=== PATIENT | female | born 1955 | race Caucasian/White ===

== ENCOUNTER 2016-10-20 10:00 | Day surgery (SDC) | payer BC ==
[2016-10-20 10:55] LABS: INR 0.96; PROTHROMBIN TIME (PATIENT) 10.9 SECONDS (9.5-12.1)
[2016-10-20] MEDS ORDERED: LIDOCAINE 2% MDV (20MG/ML) 20ML VIAL IV ONE (14:00)
[2016-10-20] MEDS ORDERED: PROPOFOL 10 MG/ML VIAL IV ONE (14:00)
[2016-10-20] MEDS ORDERED: MIDAZOLAM HCL 2MG/2ML VIAL IV ONE (14:00)
[2016-10-20] MEDS ORDERED: FENTANYL PF 100MCG/2ML VIAL IV ONE (14:00)
--- NOTE | 2016-10-21 12:30 | Operative Note ---
DATE OF SURGERY: 10/20/2016 ORDERING PHYSICIAN: Montserrat Harris D.O. PROCEDURE: ESOPHAGOGASTRODUODENOSCOPY with Savary guidewire dilatation. Surgeon: Fede Flor D.O. Indication: Recurring dysphagia. HISTORY: The patient is a very pleasant 61-year-old female who suffers with dysphagia. She has problems with both initiating the swallow mechanism and has had an abnormal video swallow study. She is now seeing a speech pathologist for strengthening exercises for swallowing musculature. She also had a tubular esophagus with narrowing in the past requiring dilatation. Her last dilatation was approximately 8 months ago. She has had chronic esophagitis and a small hiatal hernia. She complains about oropharyngeal, cervical dysphagia and esophageal dysphagia. Intravenous sedation was administered by Department of Anesthesiology and included Diprivan titrated to effect. PROCEDURE: Following informed consent from this alert individual, including a discussion of the risks and benefits of the procedure and an opportunity for the patient to ask questions, the patient was in the left lateral decubitus position. The Olympus GIF-180 video endoscope was inserted into the esophagus without resistance. The proximal esophagus had a normal appearance with normal folds and distensibility. There was a focal patch of some white plaquing noted in the proximal third of the esophagus but this was much improved from previous examinations. The mid and distal esophagus was endoscopically unremarkable although mildly narrowed. The mucosa appeared to be normal. There was a small hiatal hernia encountered, measuring 2 cm or less. No changes were noted within the hernia sac. The subdiaphragmatic stomach was evaluated and found to be normal. Pylorus was patent. Duodenal bulb, sweep and descending duodenum were examined in a serial fashion and found to be normal. The instrument was then withdrawn back in the body of the stomach. Retroflexion accomplished following air insufflation failed to demonstrate any additional changes. The endoscope was then straightened and withdrawn back through the esophagus. Again the esophagus endoscopically appeared much improved from previous studies. There was less narrowing and only a small bit of white plaquing in the proximal third of the esophagus. A decision was made to proceed with dilatation. A guidewire was advanced through the endoscope and placed into the antrum. The endoscope was withdrawn and serial dilatation followed utilizing numbers 11 and 12 pointed dilators. Each dilator was passed with relative ease. The last dilator was withdrawn simultaneously with the guidewire. There was only minimal resistance noted with the passage of this dilator. Repeat endoscopy following dilatation revealed a small mucosal tear in the cervical esophagus but this was quite tiny measuring less than 1 cm in length. The patient tolerated the procedure well and was returned to the Recovery Area in stable condition. IMPRESSION: 1. Tubular narrowing of the esophagus status post dilatation to 12.8 Savary dilator with a small mucosal tear noted in the cervical esophagus. 2. Small hiatal hernia. RECOMMENDATIONS: The patient will continue with physical therapy. I did advise her also to have a consultation with a neurologist to see why in fact she has muscle weakness. Followup also will be with Dr. Harris. As always, thank you for allowing me to participate in the care of your patient. Fede Flor DO CC: Daniel Arellano
== END 2016-10-20 12:32 | disposition home or self-care (01) ==
LOC: HOP 10:00
PROVIDERS: ATTEND Internal Medicine Gastroenterology
DX: R13.14 Dysphagia, pharyngoesophageal phase (principal); E03.9 Hypothyroidism, unspecified; Z79.01 Long term (current) use of anticoagulants; E78.00 Pure hypercholesterolemia, unspecified; I10 Essential (primary) hypertension
CPT/HCPCS: 85610; 43248; 00740; J3010

== ENCOUNTER 2017-06-12 06:21 | Emergency (ER) | payer BC ==
[2017-06-12] MEDS ORDERED: MORPHINE SULFATE 5 MG/ML PFS IVP ONE (06:39)
[2017-06-12] MEDS ORDERED: ONDANSETRON HCL IV 4 MG/2 ML VIAL IVP ONE (06:39)
[2017-06-12] MEDS ORDERED: 0.9 % SODIUM CHLORIDE 1000ML 500 ML IV SCH (06:45)
--- NOTE | 2017-06-12 06:45 | Emergency Department Record ---
History of Present Illness - General Chief Complaint: Fall Injury Stated Complaint: FALL Time Seen by Provider: 06/12/17 06:38 Source: Patient Mode of Arrival: Wheelchair Limitations: No limitations - History of Present Illness Initial Comments: 62 yo female presents to ED for evaluation of left hip and head injury following a fall approximately 4 hours ago. Patient reports that she tripped and fell over a rug at home, has been unable to stand/ambulate following her fall. Patient denies LOC or headache symptoms, but does take coumadin following DVT of the LLE previously. Patient did take Sumner 10 mg earlier this morning which helped somewhat. 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: Yes, by family Place Fall Occurred: Home Loss of Consciousness: None Prolonged Down Time?: No Symptoms Prior to Fall: None Location: Head Location - Extremities: Left: Lower Leg Severity scale (1-10): 8 Quality: Aching Associated Symptoms: Denies - [place] Coma Scale Eye Response: (4) Open spontaneously Motor Response: (6) Obeys commands Verbal Response: (5) Oriented [place] Total: 15 - Related Data Home Medications Medication Instructions Recorded Confirmed Last Taken Citalopram Hydrobromide 40 mg PO DAILY 06/12/17 06/12/17 Unknown [Citalopram HBr] Warfarin Sodium [Coumadin] 3 mg PO ASDIR 06/12/17 06/12/17 Unknown Previous Rx's Medication Instructions Recorded Acyclovir [Zovirax] 200 mg PO DAILY #90 capsule 03/09/15 Allergies Allergy/AdvReac Type Severity Reaction Status Date / Time amoxicillin trihydrate Allergy Severe ANAPHYLAXIS Unverified 10/23/15 10:37 [From Augmentin] clindamycin HCl Allergy Severe NAUSEA Unverified 10/23/15 10:37 [From Cleocin] clindamycin palmitate HCl Allergy Severe NAUSEA Unverified 10/23/15 10:37 [From Cleocin] clindamycin phosphate Allergy Severe NAUSEA Unverified 10/23/15 10:37 [From Cleocin] NSAIDS (Non-Steroidal Allergy Severe ANAPHYLAXIS Unverified 10/23/15 10:37 Anti-Inflamma penicillin V Allergy Severe ANAPHYLAXIS Unverified 10/23/15 10:37 potassium clavulanate Allergy Severe ANAPHYLAXIS Unverified 10/23/15 10:37 [From Augmentin] amitriptyline HCl AdvReac Severe ALTERED Unverified 10/23/15 10:37 [From Elavil] MENTAL STATUS gabapentin AdvReac Severe ALTERED Unverified 10/23/15 10:37 MENTAL STATUS codeine AdvReac Intermediate VOMITING Unverified 10/23/15 10:37 tramadol HCl [From Ultram] AdvReac Intermediate VOMITING Unverified 10/23/15 10: 37 Travel Screening - Travel/Exposure Within Last 30 Days Have you traveled within the last 30 days?: No - Travel Symptoms Symptom Screening: None Review of Systems Constitutional: Denies: Chills, Fever, Malaise, Night sweats Eyes: Denies: Eye discharge, Eye pain ENT: Denies: Congestion, Ear pain, Epistaxis Respiratory: Denies: Cough, Dyspnea Cardiovascular: Denies: Chest pain, Dyspnea on exertion Endocrine: Denies: Fatigue, Heat or cold intolerance Gastrointestinal: Denies: Abdominal pain, Nausea, Vomiting Genitourinary: Denies: Hematuria, Incontinence, Retention Musculoskeletal: Reports: Arthralgia. Denies: Back pain, Gout, Joint swelling Skin: Denies: Bruising, Change in color Neurological: Reports: Headache. Denies: Abnormal gait, Confusion, Seizure Psychiatric: Denies: Anxiety Hematological/Lymphatic: Reports: Blood Clots, Easy bleeding, Easy bruising. Denies: Anemia Past Medical History - SOCIAL HISTORY Smoking Status: Heavy tobacco smoker (>10/day) - RESPIRATORY Hx Respiratory Disorders: Yes Hx COPD: Yes - CARDIOVASCULAR Hx Cardio Disorders: Yes Hx Deep Vein Thrombosis: Yes (leg 1972, groin 1989) Hx Hypertension: Yes - NEURO Hx Neuro Disorders: Yes Comment:: Lupus - GI Hx GI Disorders: Yes Hx Abdominal Pain: Yes Comment:: c/o dysphagia - Hx Genitourinary Disorders: Yes Hx Kidney Stones: Yes - ENDOCRINE Hx Endocrine Disorders: Yes Hx Thyroid Disease: Yes (Hypo) - MUSCULOSKELETAL Hx Musculoskeletal Disorders: No - PSYCH Hx Psych Problems: Yes Hx Anxiety: Yes Hx Depression: Yes - HEMATOLOGY/ONCOLOGY Hx Hematology/Oncology Disorders: No Comment:: bleeds easily due to Coumadin Family Medical History Any Significant Family History?: Yes Hx Cancer: Father *Cancer Comment: Esophageal cancer Physical Exam - General General Appearance: Alert, Oriented x3, Cooperative, Moderate distress Limitations: No limitations - Head Head exam: Atraumatic, Normocephalic, Normal inspection Head exam detail: negative: Abrasion, Contusion, Garcia's sign, General tenderness, Hematoma, Laceration - Eye Eye exam: Normal appearance. negative: Conjunctival injection, Periorbital swelling, Periorbital tenderness, Scleral icterus - ENT Ear exam: negative: Auricular hematoma, Auricular trauma Nasal Exam: negative: Active bleeding, Discharge, Dried blood, Foreign body Mouth exam: negative: Drooling, Laceration, Tongue elevation - Neck Neck exam: Normal inspection. negative: Meningismus, Tenderness - Respiratory Respiratory exam: Normal lung sounds bilaterally. negative: Rales, Respiratory distress, Rhonchi, Stridor - Cardiovascular Cardiovascular Exam: Regular rate, Normal rhythm, Normal heart sounds Peripheral Pulses: 3+: Dorsalis Pedis (L) - GI/Abdominal GI/Abdominal exam: Soft. negative: Rebound, Rigid, Tenderness - Rectal Rectal exam: Deferred - exam: Deferred - Extremities Extremities exam: Other (LLE held in flexed position, outwardly rotated on examination, strong DPP present. No pain over the knee or remainder of the LE.) - Back Back exam: Denies: CVA tenderness (R), CVA tenderness (L) - Neurological Neurological exam: Alert, Oriented X3. negative: Motor sensory deficit - Psychiatric Psychiatric exam: Normal affect, Normal mood - Skin Skin exam: Normal color. negative: Abrasion Type of lesion: negative: abrasion Course Vital Signs 06/12/17 06:26 Temperature 97.6 F Pulse Rate 84 Respiratory 18 Rate Blood Pressure 186/93 Pulse Ox 98 - Reevaluation(s) Reevaluation #1: 06/12/17 06:56 Initial orders placed for imaging and analgesia, case was discussed with oncoming provider, will assume care and disposition at this time. Medical Decision Making - Lab Data Result diagrams: 06/12/17 06:51 06/12/17 06:51 Disposition Forms: Patient Portal Access Quality - Quality Measures Quality Measures: N/A - Blood Pressure Screening Does Patient Have Any of the Following: Active Dx of HTN Blood Pressure Classification: Hypertensive Reading Systolic Measurement: 186 Diastolic Measurement: 93 Screening for High Blood Pressure: Patient Exclusion, Hx of HTN [G9744]
[2017-06-12 06:58] LABS: HEMATOCRIT 38.6 % (35.0-47.0); HEMOGLOBIN 12.9 gm/dl (11.6-16.0); MEAN CELL VOLUME 91.9 fl (81-97); MEAN CORPUSCULAR HEMOGLOBIN 30.7 pg (27-33); MEAN CORPUSCULAR HGB CONC 33.4 g/dl (32-36); MEAN PLATELET VOLUME 9.1 fl (7.4-10.4); PLATELET COUNT 249 K/uL (130-400); RED CELL DISTRIBUTION WIDTH 13.2 % (11.5-14.5); WHITE BLOOD COUNT W/O DIFF 9.1 K/uL (4.2-12.2)
[2017-06-12 07:12] LABS: BLOOD UREA NITROGEN 8 mg/dL (8-23); CREATININE 0.7 mg/dL (0.5-0.9); EST GLOMERULAR FILTRATION RATE > 60 mL/min; INR 2.88; PROTHROMBIN TIME (PATIENT) 31.4 SECONDS (9.5-12.1)
[2017-06-12 07:13] LABS: TOTAL PROTEIN 6.5 g/dL (6.6-8.7)
[2017-06-12 07:14] LABS: GLUCOSE,RANDOM 132 mg/dL (74-109)
[2017-06-12 07:17] LABS: ALB/GLOB RATIO 1.6 (1.1-1.8); ALKALINE PHOSPHATASE 59 U/L (35-104); ALT/SGPT 9 U/L (<33); AST/SGOT 20 U/L (10.0-35.0)
[2017-06-12] MEDS ORDERED: HYDROMORPHONE HCL 1 MG/ML SYRINGE IVP ONE ×2 (07:46→09:08)
--- NOTE | 2017-06-12 08:39 | Emergency Department Record ---
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: Yes, by family Place Fall Occurred: Home Loss of Consciousness: None Prolonged Down Time?: No Symptoms Prior to Fall: None Location: Head Location - Extremities: Left: Lower Leg Severity scale (1-10): 8 Quality: Aching Associated Symptoms: Denies - [place] Coma Scale Eye Response: (4) Open spontaneously Motor Response: (6) Obeys commands Verbal Response: (5) Oriented [place] Total: 15 - Related Data Home Medications Medication Instructions Recorded Confirmed Last Taken Citalopram Hydrobromide 40 mg PO DAILY 06/12/17 06/12/17 Unknown [Citalopram HBr] Warfarin Sodium [Coumadin] 3 mg PO ASDIR 06/12/17 06/12/17 Unknown Previous Rx's Medication Instructions Recorded Acyclovir [Zovirax] 200 mg PO DAILY #90 capsule 03/09/15 Allergies Allergy/AdvReac Type Severity Reaction Status Date / Time amoxicillin trihydrate Allergy Severe ANAPHYLAXIS Verified 06/12/17 07:19 [From Augmentin] clindamycin HCl Allergy Severe NAUSEA Verified 06/12/17 07:19 [From Cleocin] clindamycin palmitate HCl Allergy Severe NAUSEA Verified 06/12/17 07:19 [From Cleocin] clindamycin phosphate Allergy Severe NAUSEA Verified 06/12/17 07:19 [From Cleocin] NSAIDS (Non-Steroidal Allergy Severe ANAPHYLAXIS Verified 06/12/17 07:19 Anti-Inflamma penicillin V Allergy Severe ANAPHYLAXIS Verified 06/12/17 07:19 potassium clavulanate Allergy Severe ANAPHYLAXIS Verified 06/12/17 07:19 [From Augmentin] amitriptyline HCl AdvReac Severe ALTERED Verified 06/12/17 07:19 [From Elavil] MENTAL STATUS gabapentin AdvReac Severe ALTERED Verified 06/12/17 07:19 MENTAL STATUS codeine AdvReac Intermediate VOMITING Verified 06/12/17 07:19 tramadol HCl [From Ultram] AdvReac Intermediate VOMITING Verified 06/12/17 07:19 Travel Screening - Travel/Exposure Within Last 30 Days Have you traveled within the last 30 days?: No - Travel Symptoms Symptom Screening: None Review of Systems Constitutional: Denies: Chills, Fever, Malaise, Night sweats Eyes: Denies: Eye discharge, Eye pain ENT: Denies: Congestion, Ear pain, Epistaxis Respiratory: Denies: Cough, Dyspnea Cardiovascular: Denies: Chest pain, Dyspnea on exertion Endocrine: Denies: Fatigue, Heat or cold intolerance Gastrointestinal: Denies: Abdominal pain, Nausea, Vomiting Genitourinary: Denies: Hematuria, Incontinence, Retention Musculoskeletal: Reports: Arthralgia. Denies: Back pain, Gout, Joint swelling Skin: Denies: Bruising, Change in color Neurological: Reports: Headache. Denies: Abnormal gait, Confusion, Seizure Psychiatric: Denies: Anxiety Hematological/Lymphatic: Reports: Blood Clots, Easy bleeding, Easy bruising. Denies: Anemia Past Medical History - SOCIAL HISTORY Smoking Status: Heavy tobacco smoker (>10/day) - RESPIRATORY Hx Respiratory Disorders: Yes Hx COPD: Yes - CARDIOVASCULAR Hx Cardio Disorders: Yes Hx Deep Vein Thrombosis: Yes (leg 1972, groin 1989) Hx Hypertension: Yes - NEURO Hx Neuro Disorders: Yes Comment:: Lupus - GI Hx GI Disorders: Yes Hx Abdominal Pain: Yes Comment:: c/o dysphagia - Hx Genitourinary Disorders: Yes Hx Kidney Stones: Yes - ENDOCRINE Hx Endocrine Disorders: Yes Hx Thyroid Disease: Yes (Hypo) - MUSCULOSKELETAL Hx Musculoskeletal Disorders: No - PSYCH Hx Psych Problems: Yes Hx Anxiety: Yes Hx Depression: Yes - HEMATOLOGY/ONCOLOGY Hx Hematology/Oncology Disorders: No Comment:: bleeds easily due to Coumadin Family Medical History Any Significant Family History?: Yes Hx Cancer: Father *Cancer Comment: Esophageal cancer Physical Exam - General Limitations: No limitations Course Vital Signs 06/12/17 06/12/17 06:26 08:20 Temperature 97.6 F Pulse Rate 84 Pulse Rate [ 85 Pulse Ox Probe] Respiratory 18 18 Rate Blood Pressure 186/93 Blood Pressure 171/83 [Left Arm] Pulse Ox 98 96 Medical Decision Making - Lab Data Result diagrams: 06/12/17 06:51 06/12/17 06:51 Lab Results 06/12/17 06/12/17 06/12/17 Range/Units 06:51 06:51 06:51 WBC 9.1 (4.2-12.2) K/uL RBC 4.20 (3.80-5.40) M/uL Hgb 12.9 (11.6-16.0) gm/dl Hct 38.6 (35.0-47.0) % MCV 91.9 (81-97) fl MCH 30.7 (27-33) pg MCHC 33.4 (32-36) g/dl RDW 13.2 (11.5-14.5) % Plt Count 249 (130-400) K/uL MPV 9.1 (7.4-10.4) fl Neutrophils % 83.0 H (47-80) % Eosinophils % Not Reportable Basophils % Not Reportable Lymphocytes 7.0 L (16-45) % Monocytes 10.0 H (0-9) % PT 31.4 H (9.5-12.1) SECONDS INR 2.88 Sodium 133 L (136-145) mmol/L Potassium 4.1 (3.4-4.5) mmol/L Chloride 93 L (98-107) mmol/L Carbon Dioxide 25.0 (22-29) mmol/L Anion Gap 15.0 (7-16) BUN 8 (8-23) mg/dL Creatinine 0.7 (0.5-0.9) mg/dL Estimated GFR > 60 mL/min Random Glucose 132 H (74-109) mg/dL Calcium 8.8 (8.8-10.2) mg/dL Total Bilirubin 0.40 (0.2-1.0) mg/dL AST 20 (10.0-35.0) U/L ALT 9 (<33) U/L Alkaline Phosphatase 59 (35-104) U/L Total Protein 6.5 L (6.6-8.7) g/dL Albumin 4.0 (4.0-5.0) g/dL Globulin 2.5 (1.4-4.8) gm/dL Albumin/Globulin Ratio 1.6 (1.1-1.8) Disposition Disposition: Transfer Clinical Impression: Hip fracture Qualifiers: Encounter type: initial encounter Fracture type: closed Laterality: left Qualified Code(s): S72.002A - Fracture of unspecified part of neck of left femur , initial encounter for closed fracture Disposition: Acute Care Hospital Transfer Transfer To: [facility] Reason For Transfer: hip fracture Accepting Physician: shaan delgado Time Discussed w/Accepting Physician: 08:53 Forms: Patient Portal Access Quality - Quality Measures Quality Measures: N/A - Blood Pressure Screening Does Patient Have Any of the Following: No Blood Pressure Classification: Hypertensive Reading Systolic Measurement: 186 Diastolic Measurement: 93 Screening for High Blood Pressure: < First Hypertensive BP, F/U Documented > [ G8950] First Hypertensive Follow-up Interventions: Follow-up with rescreen GT 1 day and LT 4 weeks.
--- NOTE | 2017-06-12 10:34 | RADIOLOGY REPORT ---
EXAM: LEFT FEMUR HISTORY: PATIENT FELL WITH LEFT HIP PAIN. TECHNIQUE: AP and lateral views of the left femur were obtained. Comparison: None. Encounter: Initial. FINDINGS: There is a fracture of the proximal femur that appears to be intertrochanteric in nature, probably comminuted, with some varus deformity. The hip is somewhat poorly seen in the lateral projection, but no definite dislocation of the femoral head evident. No additional fracture of the more distal aspect of the femur identified. IMPRESSION: INTERTROCHANTERIC PROBABLY COMMINUTED FRACTURE OF THE PROXIMAL LEFT FEMUR WITH MILD VARUS DEFORMITY. JOB NUMBER: [id number] [facility]
--- NOTE | 2017-06-12 10:46 | CT SCAN REPORT ---
EXAM: EMERGENCY HEAD CT HISTORY: PATIENT FELL WITH HEAD INJURY. TECHNIQUE: Axial CT scan of the head was performed without IV contrast. Comparison: No prior head CT. Encounter: Initial. FINDINGS: No definite acute intracranial hemorrhage identified. No focal mass effect or midline shift apparent. No definite acute infarct or intracranial mass lesion is seen. No depressed calvarial fracture is evident. IMPRESSION: EMERGENCY NONCONTRAST HEAD CT APPEARS ESSENTIALLY NEGATIVE WITH NO DEFINITE ACUTE INTRACRANIAL HEMORRHAGE OR FOCAL MASS EFFECT IDENTIFIED. JOB NUMBER: [id number] [facility]
--- NOTE | 2017-06-12 10:50 | CT SCAN REPORT ---
EXAM: EMERGENCY CT SCAN OF THE CERVICAL SPINE HISTORY: PATIENT FELL. TRAUMA ALERT. TECHNIQUE: Axial CT scan of the entire cervical spine was performed without IV contrast. Comparison: No prior cervical study. Encounter: Initial. FINDINGS: There is apical pleural thickening bilaterally. No apical pneumothorax evident. No definite fracture of the cervical spine identified. No prevertebral soft tissue swelling is evident. There is narrowing of the C5- C6 and to a lesser degree C6-C7 interspaces with some associated hypertrophic spurring. Degenerative change at the odontoid-anterior arch of C1 articulation seen. There is also the normal cervical lordosis likely due to positioning or spasm. IMPRESSION: 1. NO DEFINITE FRACTURE OR PREVERTEBRAL SOFT TISSUE SWELLING SEEN IN THE CERVICAL SPINE. 2. SOME LOSS OF LORDOSIS LIKELY DUE TO POSITIONING OR SPASM. 3. SOME MILD DEGENERATIVE CHANGES IN THE CERVICAL SPINE DESCRIBED ABOVE. JOB NUMBER: [id number] [facility]
--- NOTE | 2017-06-12 13:27 | CT SCAN REPORT ---
EXAM: EMERGENCY CT OF THE ABDOMEN AND PELVIS WITH CONTRAST HISTORY: PATIENT FELL WITH LEFT HIP PAIN. POSTOP HYSTERECTOMY. TECHNIQUE: Axial CT scan of the abdomen and pelvis was performed following both oral and IV contrast administration utilizing a dose of 100 ml of Omnipaque 300 as the IV contrast. Comparison: CT of the abdomen and pelvis dated 08/08/14. Encounter: Initial. FINDINGS: No calcified gallstones are seen within the gallbladder. No definite hepatic, splenic, adrenal, pancreatic, or renal mass identified. The uterus is not identified consistent with surgical history. There is some form of wire extending through the right side of the sacrum which may be related to a prior pain pump procedure and correlation with the prior procedure history is suggested. No actual battery pack associated with this wire is seen today. There are segments of the colon that have a relatively thick walled appearance. This may simply be due to incomplete distention although is nonspecific. Oral contrast given has not as yet received the terminal ileum or cecum, but there is no convincing evidence of small bowel obstruction. There are several small subpleural nodular densities in the left base seen today which were present previously as well and appear essentially unchanged. No free intraperitoneal air or free intraperitoneal fluid evident. There is a comminuted intertrochanteric proximal left femoral fracture, new since the prior CT. No dislocation of the femoral head evident. There is probably some associated hematoma particularly along the anterior aspect of the hip. Mild lumbar curve convexed to the left. There is some oral contrast noted in the lower esophagus which may be related to gastroesophageal reflux. IMPRESSION: 1. COMMINUTED INTERTROCHANTERIC LEFT FEMORAL FRACTURE. 2. POSTOP HYSTERECTOMY. 3. MULTIPLE SMALL SUBPLEURAL NODULAR DENSITIES IN THE LEFT BASE ALSO PRESENT PREVIOUSLY. 4. SOME ORAL CONTRAST IN THE LOWER ESOPHAGUS COULD REPRESENT GASTROESOPHAGEAL REFLUX. 5. NO FREE AIR OR FREE FLUID EVIDENT. THICK WALLED APPEARANCE OF PORTIONS OF THE COLON ARE NONSPECIFIC ALTHOUGH MAY SIMPLY BE DUE TO INCOMPLETE DISTENTION. JOB NUMBER: [id number] [facility]
== END 2017-06-12 09:20 | disposition short-term general hospital (02) ==
LOC: ER 06:21
DX: S72.142A Displaced intertrochanteric fracture of left femur, initial encounter for closed fracture (principal); S09.90XA Unspecified injury of head, initial encounter; S80.02XA Contusion of left knee, initial encounter; S50.02XA Contusion of left elbow, initial encounter; J98.4 Other disorders of lung; I10 Essential (primary) hypertension; F17.210 Nicotine dependence, cigarettes, uncomplicated; Z86.718 Personal history of other venous thrombosis and embolism; Z79.01 Long term (current) use of anticoagulants; W01.198A Fall on same level from slipping, tripping and stumbling with subsequent striking against other object, initial encounter; Y92.009 Unspecified place in unspecified non-institutional (private) residence as the place of occurrence of the external cause
CPT/HCPCS: 99285 ×2; 96376; 96374; 96375; 85610; 80053; 85027; 73552; 72125; 70450; 74177; Q9967; J2405; J2270; J1170; J7030

== ENCOUNTER 2017-09-14 08:42 | Day surgery (SDC) | payer BC, MEDICARE ==
[2017-09-14] MEDS ORDERED: PROPOFOL 10 MG/ML VIAL IV ONE (08:43)
[2017-09-14] MEDS ORDERED: LIDOCAINE 2% MDV (20MG/ML) 20ML VIAL IV ONE (08:43)
[2017-09-14] MEDS ORDERED: FENTANYL PF 100MCG/2ML VIAL IV ONE (08:43)
[2017-09-14] MEDS ORDERED: MIDAZOLAM HCL 2MG/2ML VIAL IV ONE (08:43)
--- NOTE | 2017-09-15 13:00 | Operative Note ---
DATE OF SURGERY: 09/14/2017 OPERATION: ESOPHAGOGASTRODUODENOSCOPY with biopsy and Savory guidewire dilatation. INDICATION: Recurring dysphagia. Patient with proximal esophageal stricture and history of esophagitis. 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 Her last examination was approximately 1 year ago. She continues with acid blockade in the form of omeprazole 40 mg each day. She has been having increasing heartburn of late. ANESTHESIA: Intravenous sedation was administered by the department of anesthesiology and included Diprivan titrated to effect. PROCEDURE: Following informed consent from this alert individual, including a discussion of the risks and benefits of the procedure and an opportunity for the patient to ask questions, the patient was in the left lateral decubitus position. The Olympus [id number] video endoscope was inserted into the esophagus without resistance. The proximal esophagus had tubular narrowing with some stenosis in the proximal portion. The mucosa, however, appeared to be unremarkable proximally in the mid esophagus. At the distal esophageal segment, there was some edema with erythema noted. The squamocolumnar junction was otherwise fairly well defined. There was a small 2 cm hiatal hernia noted. The subdiaphragmatic stomach was entered and found to be unremarkable. The pylorus was patent. The duodenal bulb, sweep, and descending duodenum were examined in a serial fashion and found to be normal. The endoscope was then withdrawn back into the body of the stomach. Retroflexion accomplished following air insufflation failed to demonstrate any additional changes. Again a small hiatal hernia was noted. The endoscope was then straightened and withdrawn back to the distal esophagus where biopsies were taken from the distal esophageal segment. After biopsy, endoscope was then advanced back into the antrum where Savory guidewire was placed endoscopically. The endoscope was removed over the guidewire and serial dilatation followed utilizing number 11 and 12 dilators corresponding to a maximal dilatation of 36-Kittitian. The last dilator was met with some slight resistance. The endoscope was then re-advanced and a small mucosal tear was noted at the proximal esophageal region. No other changes were appreciated. The patient tolerated the procedure well and was returned to the recovery area in stable condition. IMPRESSION: 1. Proximal esophageal structuring as described above. 2. Mild distal esophagitis. Biopsies taken. 3. Small hiatal hernia. 4. Status post dilatation to 36-Kittitian. RECOMMENDATION: The patient will continue on acid blockade therapy. She will restart her Coumadin. Further recommendations forthcoming pending biopsy. She will have a followup appointment in 1 year's time or sooner if problems arise. Followup will also be with primary care physician, Dr. Harris. As always, thank you for allowing me to participate in the care of your patient. CC: Montserrat TORO
== END 2017-09-14 10:32 | disposition home or self-care (01) ==
LOC: HOP 08:42
PROVIDERS: ATTEND Internal Medicine Gastroenterology
DX: R13.12 Dysphagia, oropharyngeal phase (principal); K44.9 Diaphragmatic hernia without obstruction or gangrene; K20.8 Other esophagitis
CPT/HCPCS: 43248; 43239; 00731; J3010